=== PATIENT | female | born 1985 | race African-American/Black ===

== ENCOUNTER 2025-05-23 08:07 | Emergency (ER) | payer SELFPAY ==
[2025-05-23 08:10] VITALS: BP 170/62; PULSE 84; RESP 18; TEMP 36.8; O2SAT 97; BMI 26.6
--- NOTE | 2025-05-23 08:17 | ED_ITS ---
HPI - General Adult General Chief complaint: Ear Problems Stated complaint: ear infection Time Seen by Provider: 05/23/25 08:16 Source: patient Mode of arrival: ambulatory Limitations: no limitations History of Present Illness ED Provider: Ann Bhagat PA-C HPI narrative: Patient is a 39 year old assigned female at with no reported medical history presenting to the emergency department today with bilateral ear pain. Patient states that she has been having pain in both of her ears. Patient states that 2 weeks ago her right ear was full of wax and a few days ago she went swimming and now both ears are hurting significantly. Patient denies any dizziness, lightheadedness, abdominal pain, nausea, vomiting, fever, chills, blurry vision, double vision, loss of vision, chest pain, difficulty breathing, shortness of breath, back pain, night sweats, pain with urination, increased urinary frequency, increased urinary urgency, blood in her urine or stool, syncope or a near syncopal episode, recent trauma or falls, bowel incontinence, bladder incontinence, or any other complaints at this time. Relieving factors: none Exacerbating factors: none Associated symptoms: denies other symptoms Treatments prior to arrival: none Related Data Previous Rx's ?Medication ?Instructions ?Recorded cefpodoxime 200 mg tablet 400 mg (2 x 200 mg) PO BID 5 days 05/23/25 #20 tabs ofloxacin 0.3 % ear drops 10 drp otic (ears) DAILY 7 d ays 05/23/25 #10 mL Allergies Allergy/AdvReac Type Severity Reaction Status Date / Time Penicillins Allergy Unknown Verified 05/23/25 08:15 Review of Systems Constitutional: Constitutional: Reports no additional constitutional complaints, Denies chills, Denies fever(s) and Denies night sweats Eyes: Eyes: Reports no additional eye complaints, Denies blurry vision, Denies change in vision, Denies diplopia, Denies eye discharge, Denies loss of vision and Denies eye pain ENT: Denies dizziness Comments: Bilateral ear pain Cardiovascular: Cardiovascular: Reports no additional cardiovascular complaints, Denies chest pain, Denies lightheadedness, Denies Loss of Consciousness and Denies dyspnea Respiratory: Respiratory: Reports no additional respiratory complaints and Denies dyspnea Gastrointestinal: Gastrointestinal: Reports no additional gastrointestinal complaints, Denies abdominal pain, Denies melena, Denies hematochezia, Denies change in bowel habits and Denies change in stool character Genitourinary: Genitourinary: Denies hematuria, Denies urinary frequency, Denies dysuria, Denies urinary incontinence, Denies urinary hesitancy and Denies urinary urgency Musculoskeletal: Musculoskeletal: Reports no additional musculoskeletal comp laints, Denies numbness and Denies tingling Neurologic: Denies dizziness, Denies loss of vision, Denies numbness and Denies tingling Psychiatric: Psychiatric: Reports no additional psychiatric complaints Endocrine: Endocrine: Reports no additional endocrine complaints Hematologic/Lymphatic: Hematologic/Lymphatic: Reports no additional hematologic/lymphatic complaints Allergic/Immunologic: Allergic/Immunologic: Reports no additional allergic/immunologic complaints [facility] Past Medical History Attestation statement: The following information was validated with the patient. Source: old records reviewed and nursing notes reviewed Social History Social History Smoked in Last 30 Days: No Use of substances other than those prescribed or required for medical reasons: No Advance Directives: No Advance Directives Information Provided: Yes Physical Exam ED Vital Signs: Vital Signs - 24 hr 05/23/25 08:10 05/23/25 08:29 05/23/25 08:41 Temperature 98.3 F 98.7 F 98.7 F Pulse Rate 84 70 70 Respiratory Rate 18 14 14 Blood Pressure 170/62 H 128/77 128/77 Pulse Oximetry 97 99 99 Oxygen Delivery Method Room Air Room Air Room Air BMI result Body Mass Index 26.6 Const General: cooperative, no acute distress, alert and awake Nutritional Appearance: well nourished Orientation/consciousness: patient oriented x3 HENMT Head: Yes normal to inspection and Yes atraumatic Ears: hearing grossly normal bilaterally, external ears normal, Abnormal EAC present excessive cerumen on the right, erythema on the left and edema on the left and TM abnormal erythematous on the right General nose exam: Normal external nose present, no nasal discharge noted and no epistaxis Face and sinus: Yes normal facial exam, No abrasion and No laceration Mouth: Normal oral and palatal mucosa present, no drooling and no muffled voice Eyes General: appearance normal, both eyes and all related structures Periorbital: periorbital findings normal Eyelids: Yes eyelids normal Conjunctivae: conjunctivae normal Pupils: Equal, round and reactive pupils present EOM: EOMs intact bilaterally Neck Neck: Yes normal visual inspection, Yes full ROM and Yes no lymphadenopathy Resp Effort & Inspection: normal respiratory effort and able to speak in complete sentences Neuro General: patient oriented x3, moves all extremities and CN's II-XI intact bilaterally Cranial nerves: Yes Equal, round and reactive pupils present Cognition (Neuro): normal cognition Extrem General: Yes normal to inspection, Yes full ROM and Yes capillary refill normal Psych Appearance: grossly normal Mental Status: mental status grossly normal Affect: normal affect Attitude: cooperative Thought process: Normal thought process present Thought content: Normal thought content present Insight: Good insight present (Psych) Medical Decision Making Medical Decision Making MDM Narrative: Patient is a 39 year old assigned female at with no reported medical history presenting to the emergency department today with bilateral ear pain. Patient's physical exam was as noted in the physical exam portion of this note. Patient has right OM and left OE. I explained my physical exam findings to the patient. I answered all questions asked by the patient. I stressed the importance of the patient taking her medication as directed (either prescribed or as the over the counter packaging recommends). I stressed the importance of the patient following up with her primary care provider. I stressed the importance of the patient returning to the emergency department immediately if her symptoms were to worsen or if she were to develop any dizziness, shortness of breath, difficulty breathing, chest pain, blurry vision, loss of vision, nausea, vomiting, abdominal pain, fever, chills, back pain, or any other complaints. Patient verbalized agreement and understanding with this treatment plan and discharge. Differential Diagnosis Differential Diagnoses: The differential diagnosis associated with the presentation includes Otitis media Otitis externa Admission/Observation Consideration of admission/observation: Escalation of care including admission/observation considered Patient would have been admitted to the hospital had her clinical presentation warranted hospital admission. Prescription Management I considered prescription management with: Antibiotic (patient prescribed antibiotics for OE + OM) Discharge Plan Discharge Clinical Impression: Otitis externa, Otitis media Patient Disposition: Home, Self-Care Instructions: Ear Infection (ED) Additional Instructions: Please take your oral antibiotic as prescribed (it is NOT a penicillin drug). Use your ear drops as directed. Follow up with your primary care provider. Return to the emergency department immediately if your symptoms worsen or if you develop any numbness, tingling, dizziness, shortness of breath, difficulty breathing, chest pain, blurry vision, loss of vision, nausea, vomiting, abdominal pain, fever, chills, back pain, or any other complaints. Please see the information below about our Patient Portal. If you are not yet enrolled in the [facility] Patient Portal, you will receive an enrollment email invitation following your visit to any [facility] setting. You may also self-enroll in the Patient Portal by visiting our website: [email or web address] The following information is required to access the Patient Portal: - Your [facility] Medical Record Number - Your personal home email address (must match what is in your electronic medical record, Registration staff can assist with this) - Name - Date of Capabilities of the Patient Portal: - Message some providers - View upcoming appointments - Access your health summary, medical history, and visit history - View current conditions and allergies - View procedure and lab results - View your medications, including guidelines, side effects, and precautions - Complete pre-appointment questionnaires requested by your provider - Ready summary reports of your office visits and procedures To access the Patient Portal Mobile Sam, follow these directions: - Search [employer] in the Sam Store or Ember Store - Download the Sam - Search for [facility] - Enter your login/password Prescriptions: New ofloxacin 0.3 % drops 10 drp otic (ears) DAILY 7 Days Qty: 10 0RF cefpodoxime 200 mg tablet 400 mg PO BID 5 Days Qty: 20 0RF Rx Instructions: must administer with a meal/food Referrals: [facility] [Primary Care Provider, Primary Care] Stand Alone Forms: Work/School Release Interventions: ED Discharge Assessment Last Done: 05/23/25 08:41 Discharge Date/Time: 05/23/25 08:42 Print Language: Austrian
[2025-05-23 08:29] VITALS: BP 128/77; PULSE 70; RESP 14; TEMP 37.1; O2SAT 99
--- OUTSIDE RECORDS SUMMARY | 2025-05-23 08:38 | XMS_ITS | Clinical Summary ---
Author Organization [facility] Address [address] [place] [address] Care Team Providers Care Border Patrol Officer Name Role Phone Alejandrina Hamiln PA-C Primary Care Provider Source Comments PLEASE NOTE, if this patient is a minor, it may be UNLAWFUL to discuss sensitive information that is contained in these records (such as FAMILY PLANNING, MENTAL HEALTH or SUBSTANCE ABUSE) with the minor patient's parent or other person without the patient's specific authorization.[facility] Allergies Active Allergy Reactions Criticality Noted Date Comments Penicillins 01/28/2015 Medications ergocalciferol (VITAMIN D-2) 1,250 mcg (50,000 unit) capsuleIndicatio ns:Vitamin D deficiency Take 1 Capsule by mouth once a week 8 Capsule 4 Active VENTOLIN HFA 90 mcg/actuation inhalerIndicatio ns:Mild intermittent asthma, unspecified whether complicated (HHS-HCC) Inhale 2 Puffs into the lungs every 4 (four) hours as needed for shortness of breath or wheezing 18 g 1 5 Active metroNIDAZOLE (FLAGYL) 500 mg tabletIndication s:BV (bacterial vaginosis) Take 1 Tablet by mouth 2 (two) times daily Avoid alcohol consumption during treatment and 48 hours post treatment.. 14 Tablet 5 Active Active Problems Problem Noted Date Diagnosed Date Personal history of COVID-19 02/08/2022 Resolved Problems Problem Noted Date Diagnosed Date Resolved Date Class 1 obesity 02/08/2022 04/06/2025 Encounters Date Type Department Care Team Description 04/21/2025 Results Follow-Up [facility] [address] [place] [id number] Chidi Munguia PA-C 04/06/2025 1:40 PM EDT Office Visit [address] [phone] Chidi Munguia PA-C from Last 3 Months Immunizations Immunization Administration Dates Next Due INFLUENZA, SEASONAL, INJECTABLE 11/26/2024 TDAP 05/31/2023,03/09/2013,03/29/2011 Family History Medical History Relation Name Comments Cancer Father Dementia Maternal Aunt Stroke Maternal Grandmother Diabetes Mother Hypertension Mother Relation Name Status Comments Father Alive Maternal Aunt Maternal Grandmother Mother Alive Social History Tobacco Use Types Packs/Day Years Used Date Smoking Tobacco: Never Smokeless Tobacco: Never Tobacco Cessation:Counseling Given: Not Answered Alcohol Use Standard Drinks/Week Comments Yes 0 (1 standard drink = 0.6 oz pur e alcohol) occasionally Social Connections Answer Date Recorded Connectedness 0 07/29/2024 Financial Resource Strain Answer Date R ecorded Financial Resource Strain 0 2021 Stress Answer Date Recorded Stress 0 02/08/2022 Physical Activity Answer Date Recorded Physical Activity 0 02/08/2022 Food Insecurity Answer Date Recorded Food 0 08/20/2024 Transportation Needs Answer Date Record ed Transportation 0 02/08/2022 Housing Stability Answer Date Recorded Housing 0 02/08/2022 Safety and Environment Answer Date Norberto rded Safety 1 12/30/2024 Utilities Answer Date Recorded Utilities 0 02/08/2022 Employment Answer Date Recorded Employment 0 02/08/2022 Comments No Sex and Gender Information Value Date Recorded Sex Assigned at Female 02/08/2022 10:03 AM PDT Legal Sex Female 11:36 AM PDT Gender Identity Female 02/08/2022 10:03 AM PDT Sexual Orientation Straight 02/08/2022 10 :03 AM PDT Last Filed Vital Signs Vital Sign Reading Time Taken Comments Blood Pressure 102/78 12/30/2024 8:51 AM EST Pulse 76 12/30/2024 8:51 AM EST Temperature 36.8 C (98.2 F) 12/30/2024 8:51 AM EST Respiratory Rate 16 12/30/2024 8:51 AM EST Oxygen Saturation 97% 12/30/2024 8:51 AM EST Inhaled Oxygen Concentration - - Weight 79.4 kg (175 lb) 12/30/2024 8:51 AM EST Height 165.1 cm (5' 5 ) 12/30/2024 8:51 AM EST Body Mass Index 29.12 12/30/2024 8:51 AM EST Plan of Treatment Health Maintenance Due Date Last Done Comments Anxiety Screening 1985 HPV Screening 1985 Imm-Pneumococcal (1 of 2 - PCV) 2004 [id number] ( - ) 07/26/2024 021, 08/04/2021 Hypertension Screening (#1) 12/30/2025 Relationship Safety Screening/Counseling 12/30/2025 12/30/2024, 05/31/2023, 02/08/2022 Diabetes Screening 01/19/2026 01/19/2025, 0 01/18/2025, 01/16/2025, Additional history exists Annual Wellness (Adult): Indicated (All Coverage) 04/06/2026 04/06/2025, 12/30/2024, 04/10/2024, Additional history exists Tobacco Screening 04/06/2026 04/06/2025 Cervical Cancer Screening 04/06/2028 Pap + HPV 04/06/2028 04/06/2025, 02/07/2022 Pap Smear 04/06/2028 04/06/2025, 01/23, 02/07/2022, Additional history exists Imm-DTaP/Tdap/Td (4 - Td or Tdap) 05/31/2033 05/31/2023, 03/09/2013, 03/29/2011 HIV Screening Completed 05/31/2023 Hepatitis C Screening Completed 05/31/2023 Imm-Influenza Completed 11/26/2024 Alcohol and Drug Screen Completed 12/30/19, 04/10/2024, 05/31/2023, Additional history exists Depression Annual Screen Completed 12/30/2024 Cervical Ablation/Cold-Knife Conization Discontinued Cervical Cryotherapy Discontinued Colposcopy Discontinued Endometrial Biopsy Discontinued Excision/Leep Discontinued HPV Genotyping Discontinued Imm-Hepatitis B Discontinued Vaginal Pap Discontinued Vulvoscopy Discontinued Procedures Procedure Name Priority Date/Time Associated Diagnosis Comments SURESWAB ADVANCED VAGINITIS PLUS, TMA Routine 04/06/2025 1:50 PM EDT Cervical smear, as part of routine gynecological examination Cervical cancer screening THIN PREP IMAGE PAP + HPV RNA E6/E7 W/RFLX HPV 16, 18/45 Routine 04/06/2025 1:49 PM EDT Cervical smear, as part of routine gynecological examination Cervical cancer screening HGA1C W/EAG Routine 04/10/2024 10:53 AM EDT Annual physical exam HIV 1/2 AG & AB W/RFLX (4TH GEN) Routine 05/31/2023 10:37 AM EDT Routine general medical examination at a health care facility HEPATITIS C AB W/RFLX HCV RNA, QT, RT PCR Routine 05/31/2023 10:37 AM EDT Routine general medical examination at a health care facility from Last 3 Months or Most Recently Relevant to Health Maintenance Results * (ABNORMAL) SURESWAB ADVANCED VAGINITIS PLUS, TMA (04/06/2025 1:50 PM EDT) KAROL SPECIES NOT DETECTED NOT DETECTED [employer] KAROL GLABRATA NOT DETECTED NOT DETECTED [employer] COMMENT [employer] TRICHOMONAS VAGINALIS (TV), TMA NOT DETECTED NOT DETECTED [employer] SURESWAB(R) ADV BACTERIAL VAGINOSIS (BV), TMA POSITIVE(A) NEGATIVE [employer] CHLAMYDIA TRACHOMATIS RNA, TMA NOT DETECTED NOT DETECTED [employer] NEISSERIA GONORRHOEAE RNA, TMA NOT DETECTED NOT DETECTED [employer] COMMENT [employer] Swab Vaginal structure / Unknown 04/06/2025 1:50 PM EDT 04/07/2025 3:11 AM EDT Narrative [employer] - 04/07/2025 2:55 PM EDT Karol species C. albicans, C. tropicalis, C. parapsilosis, and/or C. dubliniensis can be detected, but not differentiated, in the Karol spp. result. For additional information, please refer to https://education.[employer]/faq/FGQ785 (This link is being provided for information/ educational purposes only.) Chidi Munguia PA-C LAB - MICROBIOLOGY AMBULATOR Y Final Result [facility] [address] [address], [employer] [address] [address] * THIN PREP IMAGE PAP + HPV RNA E6/E7 W/RFLX HPV 16, 18/45 (04/06/2025 1:49 PM EDT) CLINICAL INFORMATION See Note [employer] Comment:ROUTINE EXAM LMP See Note [employer] Comment:[id number] PREV. PAP [employer] PREV. BX See Note [employer] Comment:NONE GIVEN SOURCE See Note [employer] Comment:Cervix STATEMENT OF ADEQUACY See Note [employer] Comment: Satisfactory for evaluation. Endocervical/transformation zone component present. INTERPRETATION/RESU LT See Note [employer] Comment: Cytology Results: Negative for intraepithelial lesion or malignancy. COMMENT See Note [employer] Comment: This Pap test has been evaluated with computer assisted technology. [employer] BI DEVELOPER See Note [employer] Comment: KF, CT(ASCP) CT screening location: [address] [address] COMMENT [employer] HPV MRNA E6/E7 Not Detected Not Detected [employer] Comment: Methodology: Box Machine Operator-Mediated Amplification This assay detects E6/E7 viral messenger RNA (mRNA) from 14 high-risk HPV types (16,18,31,33,35,39,45,51,52,56,58,59,66,68). Cervical sources are required for HPV testing. If a vaginal source from a patient who has had a total hysterectomy with removal of cervix was submitted, please contact the testing laboratory for alternative testing options. For additional information, please refer to http://PLAYD8.[employer]/faq/NCB487n1 (This link if provided for information/ educational purposes only.) Swab Endocervical structure / Unknown 04/06/2025 1:49 PM EDT 04/07/2025 9:20 AM EDT Narrative [facility] [facility] - 04/09/2025 1:48 PM EDT EXPLANATORY NOTE: The Pap is a screening test for cervical cancer. It is not a diagnostic test and is subject to false negative and false positive results. It is most reliable when a satisfactory sample, regularly obtained, is submitted with relevant clinical findings and history, and when the Pap result is evaluated along with historic and current clinical information. us Chidi Munguia PA-C LAB - PATHOLOGY AND CYTOLOGY AMBULATORY Final Result Performing Organization Address [facility] Co de Phone Number [facility] [address] [address], [employer] [address] [place] [phone] * (ABNORMAL) HGA1C W/EAG (04/10/2024 10:53 AM EDT) HEMOGLOBIN A1C 5.9(H) <5.7 % of total Hgb [employer] Comment: For someone without known diabetes, a hemoglobin A1c value between 5.7% and 6.4% is consistent with prediabetes and should be confirmed with a follow-up test. For someone with known diabetes, a value <7% indicates that their diabetes is well controlled. A1c targets should be individualized based on duration of diabetes, age, comorbid conditions, and other considerations. This assay result is consistent with an increased risk of diabetes. Currently, no consensus exists regarding use of hemoglobin A1c for diagnosis of diabetes for children. EAG (MG/DL) 123 mg/dL [employer] EAG (MMOL/L) 6.8 mmol/L [employer] Blood Blood / Unknown 04/10/2024 1 0:53 AM EDT 04/10/2024 10:53 AM EDT Narrative [facility] - 04/15/2024 6:07 AM EDT FASTING:YES us Alejandrina Hamlin PA-C LAB - BLOOD DRAW Edited Resu lt - Final Performing Organization Address [facility] Co de Phone Number [facility] [address] [address], [employer] [facility] [address] [place] [address] * Hep C w/ Reflex (05/31/2023 10:37 AM EDT) HEPATITIS C ANTIBODY NON-REACT FRANK NON-REACT FRANK CBIT A/S [facility] Comment: HCV antibody was non-reactive. There is no laboratory evidence of HCV infection. In most cases, no further action is required. However, if recent HCV exposure is suspected, a test for HCV RNA (test code 62379) is suggested. For additional information please refer to http://PLAYD8.[employer]/faq/DEJ03o8 (This link is being provided for informational/ educational purposes only.) Blood Blood / Unknown 05/31/2023 1 0:37 AM EDT 05/31/2023 10:37 AM EDT Narrative [employer] [facility] - 06/08/2023 8:52 AM EDT FASTING:YES Lacey Kimball NP LAB - BLOOD DRAW Edited Result - Final [facility] [address] [address], [employer] [address] [address] * HIV 1/2 AG & AB W/RFLX (4TH GEN) (05/31/2023 10:37 AM EDT) HIV AG/AB, 4TH GEN NON-REAC TIVE NON-REAC TIVE CBIT A/S [facility] Comment: HIV-1 antigen and HIV-1/HIV-2 antibodies were not detected. There is no laboratory evidence of HIV infection. PLEASE NOTE: This information has been disclosed to you from records whose confidentiality may be protected by state law. If your state requires such protection, then the state law prohibits you from making any further disclosure of the information without the specific written consent of the person to whom it pertains, or as otherwise permitted by law. A general authorization for the release of medical or other information is NOT sufficient for this purpose. For additional information please refer to http://PLAYD8.[employer]/faq/LWV882 (This link is being provided for informational/ educational purposes only.) The performance of this assay has not been clinically validated in patients less than 2 years old. Blood Blood / Unknown 05/31/2023 1 0:37 AM EDT 05/31/2023 10:37 AM EDT Narrative [facility] [employer] - 06/08/2023 8:52 AM EDT FASTING:YES Lacey Kimball NP LAB - BLOOD DRAW Final Result [facility] [address] [address], [employer] [facility] [address] [place] [address] from Last 3 Months or Most Recently Relevant to Health Maintenance Insurance [id number] Care Teams Border Patrol Officer Relationship Specialty Start Date End Date Alejandrina Hamlin PA-C [address] [place] [address] PCP - General Internal Medicine 05/15/22
[2025-05-23 08:41] VITALS: BP 128/77; PULSE 70; RESP 14; TEMP 37.1; O2SAT 99
== END 2025-05-23 08:42 | disposition home or self-care (01) ==
LOC: HO.ED 08:35
PROVIDERS: Emergency Provider Emergency Medicine; PCP Dentist General Practice
DX: H66.93 Otitis media, unspecified, bilateral (principal); H60.93 Unspecified otitis externa, bilateral; H92.03 Otalgia, bilateral
CPT/HCPCS: 99283; 99284